=== PATIENT | male | born 1995 | race American Indian/Alaskan Native ===

== ENCOUNTER 2024-07-16 15:22 | Emergency (ER) | payer BC ==
[2024-07-16] MEDS: Take Home: Sulfamethoxazole/Trimethoprim 800-160 MG Tab, 6 Tab Pack PO ONE (15:58)
[2024-07-16] MEDS: Sulfamethoxazole/Trimethoprim 800-160 MG Tab PO ONE (15:58)
== END 2024-07-16 16:00 | disposition home or self-care (01) ==
LOC: DL.ED 15:22
DX: L03.115 Cellulitis of right lower limb (principal); Z88.0 Allergy status to penicillin
CPT/HCPCS: 99283; A9270-GY